=== PATIENT | female | born 1995 | race Asian ===

== ENCOUNTER 2017-04-29 20:04 | Emergency (ER) | payer BC ==
[~2017-04-29] VITALS: Ht 165.1 cm; Wt 70.5 kg
[2017-04-29 20:07] VITALS: BP 143/84
[2017-04-29] MEDS ORDERED: NIKKI1 TAB PO (20:10)
[2017-04-29 21:11] LABS: COLLECTION METHOD CLEAN CATCH
[2017-04-29 21:13] LABS: BASO % 0.4 % (0.0-2.0); EOS # 0.3 (0.0-0.7); EOS % 3.2 % (0-4.0); GRAN # 5.5 (1.4-6.5); GRAN % 60.4 % (42.2-75.2); HEMATOCRIT 39.8 % (35.0-45.0); HEMOGLOBIN 13.5 g/dl (12.0-15.0); LYMPH # 2.7 (1.2-3.4); LYMPH % 29.4 % (20.0-51.0); MEAN CELL VOLUME 91 fl (80.0-95.0); MEAN CORPUSCULAR HEMOGLOBIN 31 pg (26.0-32.0); MEAN CORPUSCULAR HGB CONC 34 g/dl (33.0-37.0); MEAN PLATELET VOLUME 10.3 fl (7.4-10.4); MONO # 0.6 (0.1-0.6); MONO % 6.2 % (1.7-9.3); PLATELET COUNT 342 K/mm3 (130-400); RED BLOOD COUNT 4.37 M/mm3 (4.10-5.30); REDCELL DISTRIBUTION WIDTH-CV 12.4 % (11.5-14.5)
[2017-04-29 21:17] LABS: MUCOUS Present /lpf; PH 6 (5-8); SQUAMOUS EPITHELIAL 0-2 /hpf; URINE APPEARANCE Clear; URINE BACTERIA None Seen /hpf; URINE BILIRUBIN Negative (NEGATIVE); URINE BLOOD Negative (NEGATIVE); URINE COLOR Yellow; URINE GLUCOSE Negative (NEGATIVE); URINE KETONE Negative (NEGATIVE); URINE LEUKOCYTE ESTERASE Negative (NEGATIVE); URINE NITRATE Negative (NEGATIVE); URINE PROTEIN(semi-quant) Negative (NEGATIVE); URINE RBC 0-2 /hpf; URINE UROBILINOGEN Negative (NEGATIVE)
[2017-04-29 21:20] LABS: ALBUMIN 4.4 gm/dL (3.5-5.0); BILIRUBIN,TOTAL 0.4 mg/dL (0.0-1.0); CALCIUM 9.2 mg/dL (8.4-10.2); CREATININE, serum 0.76 mg/dL (0.52-1.25); POTASSIUM 3.8 mmol/L (3.4-5.0); TOTAL PROTEIN 7.8 gm/dL (6.4-8.2)
[2017-04-29] MEDS ORDERED: VOLTAREN 75 DR75 MG PO (21:28)
[2017-04-29] MEDS ORDERED: FLEXERIL 1010 MG/TAB PO (21:28)
[2017-04-29 22:21] VITALS: PULSE 70
== END 2017-04-29 22:22 | disposition home or self-care (01) ==
LOC: COL.ER 20:04
PROVIDERS: Emergency Medicine
DX: S16.1XXA Strain of muscle, fascia and tendon at neck level, initial encounter (principal); S70.11XA Contusion of right thigh, initial encounter; F17.210 Nicotine dependence, cigarettes, uncomplicated; V48.6XXA Car passenger injured in noncollision transport accident in traffic accident, initial encounter

== ENCOUNTER → 2017-08-03 | Outpatient (CLI) | payer BC ==
[~2017-08-03] VITALS: Ht 167.6 cm; Wt 65.9 kg
[~2017-08-03] MED LIST: FLEXERIL 1010 MG/TAB PO; LORYNA 3 MG-0.01 TAB PO; NIKKI1 TAB PO; VOLTAREN 75 DR75 MG PO
[2017-08-03 14:06] VITALS: BP 116/77; PULSE 90; TEMP 98.8
[2017-08-03 17:36] LABS: TRICYCLIC ANTIDEPRESS URINE NEGATIVE
== END ==
LOC: COL.ER 13:55 → EDSTATUS 14:21 → LDRO 14:27
PROVIDERS: Family Medicine
DX: Z04.41 Encounter for examination and observation following alleged adult rape (principal)
CPT/HCPCS: J0696

== ENCOUNTER → 2017-08-03 | Outpatient (REF) | LOC: COL.ER 14:40 | DX: Z72.9 Problem related to lifestyle, unspecified (principal) ==

== ENCOUNTER 2021-11-26 12:20 | Observation (INO) | payer BC, OTHER ==
[~2021-11-26] VITALS: Ht 165.1 cm; Wt 61.7 kg
[2021-11-26] MEDS ORDERED: AMOXICILLIN 8751 TAB PO (12:33)
[2021-11-26] MEDS ORDERED: PREDNISONE20 MG PO (12:34)
[2021-11-26] MEDS ORDERED: PROVENTIL0.09 MG/A1 IH (12:34)
[2021-11-26 13:12] LABS: BASO # 0.1 K/mm3 (0.0-0.2); BASO % 0.4 % (0.0-2.0); GRAN # 15.3 K/mm3 (1.4-6.5); HEMATOCRIT 44.4 % (37.0-47.0); HEMOGLOBIN 14.8 g/dl (12.5-16.0); LYMPH # 2.4 K/mm3 (1.2-3.4); LYMPH % 12.9 % (20.0-51.0); MEAN CELL VOLUME 91 fl (80.0-100.0); MEAN CORPUSCULAR HEMOGLOBIN 31 pg (27-31); MEAN CORPUSCULAR HGB CONC 33 g/dl (33.0-37.0); MEAN PLATELET VOLUME 9.9 fl (7.4-10.4); MONO # 0.6 K/mm3 (0.1-0.6); MONO % 3.1 % (1.7-9.3); PLATELET COUNT 367 K/mm3 (130-400); RED BLOOD COUNT 4.86 M/mm3 (4.10-5.30); REDCELL DISTRIBUTION WIDTH-CV 12.4 % (11.5-14.5)
[2021-11-26 13:26] LABS: ALBUMIN 3.9 gm/dL (3.5-5.0); BILIRUBIN,TOTAL 0.5 mg/dL (0.2-1.2); C-REACTIVE PROTEIN 0.06 mg/dL (0.00-0.50); CALCIUM 9.3 mg/dL (8.4-10.2); CREATININE, serum 0.83 mg/dL (0.57-1.11); POTASSIUM 4.5 mmol/L (3.5-4.5); TOTAL PROTEIN 8.1 gm/dL (6.2-8.1)
[2021-11-26 14:10] LABS: COLLECTION METHOD CLEAN CATCH
[2021-11-26 14:24] LABS: URINE APPEARANCE Clear (CLEAR/HAZY); URINE BLOOD TRACE-INTACT (NEGATIVE); URINE COLOR Yellow (YELLOW); URINE GLUCOSE Negative (NEGATIVE); URINE KETONE Negative (NEGATIVE); URINE NITRATE Negative (NEGATIVE); URINE PROTEIN(semi-quant) Negative (NEGATIVE); URINE UROBILINOGEN 0.2 E.U/dL (0.2-1.0)
[2021-11-26 14:25] LABS: SQUAMOUS EPITHELIAL 0-2 /hpf (0-10); URINE BACTERIA None Seen /hpf (NONE SEEN); URINE RBC 0-2 /hpf (0-2)
[2021-11-26 16:07] LABS: CSF APPEARANCE HAZY; CSF COLOR COLORLESS
[2021-11-26 16:08] LABS: CSF RBC 6 /mm3 (0-0)
[2021-11-26 16:16] LABS: GLUCOSE,CSF 58 mg/dL (40-70); TOTAL PROTEIN,CSF 86 mg/dL (15-45)
[2021-11-26 16:21] LABS: CSF APPEARANCE CLEAR; CSF COLOR COLORLESS; CSF RBC 7 /mm3 (0-0)
[2021-11-26 16:38] LABS: CSF MONONUCLEAR 83 % (70-100); CSF POLYMORPHONUCLEAR 17 % (0-6)
[2021-11-26 16:42] LABS: CSF POLYMORPHONUCLEAR 3 % (0-6)
[2021-11-26 16:43] LABS: CSF MONONUCLEAR 97 % (70-100)
--- NOTE | 2021-11-26 18:31 | NUR ---
Vancomycin Initial Dosing Pharmacy Note Ordering provider: Davin Gustafson MD Indication/duration: meningitis Recommendation: Loading dose: 750mg given in ED Maintenance dose: 750 mg every 8 hours Trough goal: 12-17 ug/mL Trough draw ordered for 11/28/21 @ 12:30 Pharmacy will continue to follow.
--- NOTE | 2021-11-26 18:46 | NUR ---
PATIENT TRANSFERRED TO ROOM 319 FROM ER VIA BED ACCOMPANIED BY ER STAFF. PATIENT ALERT AND ORIENTED X4. ORIENTED TO ROOM, BED, CALL LIGHT, PHONE, TV, AND HOW TO CONTACT STAFF. FAMILY AT BEDSIDE. DROPLET PRECAUTIONS IN PLACE R/T MENINGITIS. INTAKE, COVID SCREENING, AND MED REC COMPLETED. DENIES ANY FURTHER QUESTIONS, CALL LIGHT WITHIN REACH.
[2021-11-26 19:12] VITALS: BP 103/54; PULSE 81; TEMP 99.2
--- NOTE | 2021-11-26 20:00 | NUR ---
Initial shift assessment done- just admitted from ER at shift change- Alert/oriented, neuros WNL, states has just a very slight BROWN to temples/base of head- denies need for pain meds, no eye sensitivity noted- Tele on- SR- Up to bathroom on own- informed to call for any assistance- On antibiotics and steroids. Contact/Droplet ISolation.
[2021-11-26 23:46] VITALS: BP 105/61; PULSE 93; TEMP 100.7
--- NOTE | 2021-11-26 23:52 | NUR ---
Temp 100.7, Michelle PINO informed of temp and slight BROWN- will order Tylenol
--- NOTE | 2021-11-26 23:52 | NUR ---
Temp 100.7, Michelle PINO informed of temp and slight BROWN- will order Tylenol
[2021-11-27 04:00] VITALS: BP 116/65; PULSE 87; TEMP 99.5
--- NOTE | 2021-11-27 06:00 | NUR ---
Temp down to 99.5, states headache is much better since the Tylenol was given earlier-
--- NOTE | 2021-11-27 06:00 | NUR ---
Temp down to 99.5, states headache is much better since the Tylenol was given earlier-
[2021-11-27 06:50] LABS: BASO # 0.1 K/mm3 (0.0-0.2); BASO % 0.5 % (0.0-2.0); GRAN % 76.2 % (42.2-75.2); LYMPH # 2.2 K/mm3 (1.2-3.4); LYMPH % 16.6 % (20.0-51.0); MEAN CELL VOLUME 93 fl (80.0-100.0); MEAN CORPUSCULAR HGB CONC 33 g/dl (33.0-37.0); MEAN PLATELET VOLUME 10.7 fl (7.4-10.4); MONO # 0.8 K/mm3 (0.1-0.6); MONO % 6.3 % (1.7-9.3); PLATELET COUNT 307 K/mm3 (130-400); RED BLOOD COUNT 3.94 M/mm3 (4.10-5.30); REDCELL DISTRIBUTION WIDTH-CV 12.2 % (11.5-14.5)
[2021-11-27 06:58] LABS: HEMATOCRIT 36.6 % (37.0-47.0); HEMOGLOBIN 12.1 g/dl (12.5-16.0); MEAN CORPUSCULAR HEMOGLOBIN 31 pg (27-31)
[2021-11-27 07:17] LABS: CALCIUM 8.2 mg/dL (8.4-10.2); CREATININE, serum 0.77 mg/dL (0.57-1.11); MAGNESIUM 1.9 mg/dL (1.6-2.6); PHOSPHOROUS 3.4 mg/dL (2.3-4.7); POTASSIUM 3.9 mmol/L (3.5-4.5)
[2021-11-27 07:47] VITALS: BP 96/60; PULSE 73; TEMP 98.2
--- NOTE | 2021-11-27 09:30 | NUR ---
OTILIO ALERT AND AWAKE. COMPLAINING OF SLIGHT HEAD ACHE AND SOME STIFFNESS TO THE BACK WHEN SHE TRIED TO AMBULATE WITH THERAPY. PATIENT CURRENTLY RESTING IN BED AT THIS TIME. CALL LIGHT WITH IN REACH.
[2021-11-27 11:51] VITALS: BP 107/60; PULSE 76; TEMP 98.2
--- NOTE | 2021-11-27 12:57 | NUR ---
stopped by and visited briefly. Patient wanted to rest.
--- NOTE | 2021-11-27 12:57 | NUR ---
stopped by and visited briefly. Patient wanted to rest.
[2021-11-27 15:38] VITALS: BP 106/62; PULSE 68; TEMP 97.9
[2021-11-27 20:25] VITALS: BP 113/74; PULSE 74; TEMP 98.7
--- NOTE | 2021-11-27 20:30 | NUR ---
Initial shift assessment done- states has mid back to flank pain, also slight headache-will give Tylenol- pt would like some Ibuprofen as this worked well for her in the past-- will call PA international logistics coordinator. Tele on. VSS. No other requests. very pleasant-alert/orientedx4.
--- NOTE | 2021-11-27 20:30 | NUR ---
Initial shift assessment done- states has mid back to flank pain, also slight headache-will give Tylenol- pt would like some Ibuprofen as this worked well for her in the past-- will call PA electronics engineering manager. Tele on. VSS. No other requests. very pleasant-alert/orientedx4.
[2021-11-27 23:58] VITALS: BP 119/77; PULSE 67; TEMP 98.1
[2021-11-28 04:49] VITALS: BP 117/76; PULSE 88; TEMP 98.1
--- NOTE | 2021-11-28 06:26 | NUR ---
Quiet night- afebrile all night, did get a couple hours of sleep between all the antibiotics
--- NOTE | 2021-11-28 06:26 | NUR ---
Quiet night- afebrile all night, did get a couple hours of sleep between all the antibiotics
[2021-11-28 06:52] LABS: BASO # 0.1 K/mm3 (0.0-0.2); BASO % 0.4 % (0.0-2.0); EOS % 0.1 % (0.0-4.0); GRAN # 10.6 K/mm3 (1.4-6.5); GRAN % 75.1 % (42.2-75.2); HEMOGLOBIN 12.4 g/dl (12.5-16.0); LYMPH # 2.8 K/mm3 (1.2-3.4); LYMPH % 19.6 % (20.0-51.0); MEAN CELL VOLUME 91 fl (80.0-100.0); MEAN CORPUSCULAR HEMOGLOBIN 31 pg (27-31); MEAN CORPUSCULAR HGB CONC 34 g/dl (33.0-37.0); MEAN PLATELET VOLUME 10.8 fl (7.4-10.4); MONO # 0.6 K/mm3 (0.1-0.6); MONO % 4.2 % (1.7-9.3); PLATELET COUNT 308 K/mm3 (130-400); RED BLOOD COUNT 4.01 M/mm3 (4.10-5.30); REDCELL DISTRIBUTION WIDTH-CV 12.2 % (11.5-14.5)
[2021-11-28 06:57] LABS: HEMATOCRIT 36.3 % (37.0-47.0)
[2021-11-28 07:07] LABS: ALBUMIN 3.2 gm/dL (3.5-5.0); CALCIUM 8.8 mg/dL (8.4-10.2); CREATININE, serum 0.73 mg/dL (0.57-1.11); POTASSIUM 4.1 mmol/L (3.5-4.5)
[2021-11-28 08:00] VITALS: BP 117/69; PULSE 60; TEMP 98.2
[2021-11-28 11:10] VITALS: BP 115/58; PULSE 75; TEMP 98.7
[2021-11-28 15:26] VITALS: BP 105/58; PULSE 93; TEMP 98.9
--- NOTE | 2021-11-28 16:44 | NUR ---
PT HAD A CALM DAY , VSS, ALERT AND ORIENT X 4,c/o pain at the neck and the back, pain meds given.all other due medicatios as prescribed.
--- NOTE | 2021-11-28 18:12 | NUR ---
Compressor Engineer met with patient for intake assessment/discharge planning: Patient presents alert and oriented, and gives consent for this Compressor Engineer to speak with her with her live-in boyfriend Malik at bedside. Patient states she is independent in her ADLs and IADLs, and lives in an apartment. She utilizes only an inhaler "very rarely" and denies use of any other DME. She states she does not have a primary care physician after she aged out of her cytology manager's services, and accepts a handout to consider PCP options, noting she does continue to be covered under her parents' healthcare coverage. She obtains her medications at [facility] without any difficulties, and she is interested in reviewing [facility]- paperwork as her boyfriend says he has completed his own. She verbalizes understanding of how to complete should she desire to do so while she remains hospitalized this stay, accepting a copy. Patient reports plan to return to home and denies any further discharge needs. *Discharge plan: to home*
--- NOTE | 2021-11-28 18:12 | NUR ---
Chicken Cleaner met with patient for intake assessment/discharge planning: Patient presents alert and oriented, and gives consent for this Chicken Cleaner to speak with her with her live-in boyfriend Malik at bedside. Patient states she is independent in her ADLs and IADLs, and lives in an apartment. She utilizes only an inhaler "very rarely" and denies use of any other DME. 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 She obtains her medications at [facility] without any difficulties, and she is interested in reviewing [facility]- paperwork as her boyfriend says he has completed his own. She verbalizes understanding of how to complete should she desire to do so while she remains hospitalized this stay, accepting a copy. Patient reports plan to return to home and denies any further discharge needs. *Discharge plan: to home*
--- NOTE | 2021-11-28 18:30 | NUR ---
PT IS SITTING UP IN RECLINER AT THIS ITME. DENIES PAIN, JUST SOME STIFFNESS IN HER NECK STILL. STATES SHE FEELS THOUGH THE CARE HERE HAS BEEN SUPERB. VERY APPRECIATIVE. DOES ASK QUESTIONS REGARDING DISCHARGE THAT HAS BEEN DISCUSSED FOR TOMORROW. NO OTHER CONCERNS AT THIS TIME.
[2021-11-28 20:18] VITALS: BP 118/76; PULSE 74; TEMP 98
--- NOTE | 2021-11-28 20:33 | NUR ---
Vancomycin Follow-up Pharmacy Note Current regimen: 750 mg q8h Vancomycin trough: 7.8 Adjustments: 1.25 g q8h
--- NOTE | 2021-11-28 20:33 | NUR ---
Vancomycin Follow-up Pharmacy Note Current regimen: 750 mg q8h Vancomycin trough: 7.8 Adjustments: 1.25 g q8h
--- NOTE | 2021-11-28 21:45 | NUR ---
THE PATIENT CALLED TO INFORM OF THE MEDICATION COMPLETE ON THE PUMP. SHE STATES THAT HER IV LOCATION HAS SOME SLIGHT DISCOMFORT. FLUSHED IV, NO ISSUES WITH PHELBITIS NOR INFLITRATION, DISCUSSED RUNNING VANC SLOWER TO HELP WITH THE DISCOMFORT. PATIENT STATES SHE AGREES. NO OTHER CONCERNS AT THIS TIME. AWAITING CLOTH FINISHING RANGE OPERATOR TO BRING NEW DOSAGE OF VANC.
--- NOTE | 2021-11-28 21:45 | NUR ---
THE PATIENT CALLED TO INFORM OF THE MEDICATION COMPLETE ON THE PUMP. SHE STATES THAT HER IV LOCATION HAS SOME SLIGHT DISCOMFORT. FLUSHED IV, NO ISSUES WITH PHELBITIS NOR INFLITRATION, DISCUSSED RUNNING VANC SLOWER TO HELP WITH THE DISCOMFORT. PATIENT STATES SHE AGREES. NO OTHER CONCERNS AT THIS TIME. AWAITING MARINE STEAM FITTER HELPER TO BRING NEW DOSAGE OF VANC.
--- NOTE | 2021-11-28 22:22 | NUR ---
STILL WAITING FOR VANCOCIN FROM INDUSTRIAL METHODS CONSULTANT WILL ADMINISTER UPON ARRIVAL.
--- NOTE | 2021-11-28 22:22 | NUR ---
STILL WAITING FOR VANCOCIN FROM SAS SQL DEVELOPER WILL ADMINISTER UPON ARRIVAL.
[2021-11-29 00:36] VITALS: BP 122/76; PULSE 65; TEMP 98.2
[2021-11-29 03:43] VITALS: BP 92/52; PULSE 63; TEMP 98.2
[2021-11-29 03:47] VITALS: BP 88/51
[2021-11-29 06:50] LABS: BASO # 0.1 K/mm3 (0.0-0.2); BASO % 0.8 % (0.0-2.0); EOS # 0.1 K/mm3 (0.0-0.7); EOS % 1.1 % (0.0-4.0); GRAN # 6.2 K/mm3 (1.4-6.5); GRAN % 50.3 % (42.2-75.2); HEMOGLOBIN 11.4 g/dl (12.5-16.0); LYMPH % 40.5 % (20.0-51.0); MEAN CELL VOLUME 95 fl (80.0-100.0); MEAN CORPUSCULAR HEMOGLOBIN 31 pg (27-31); MEAN CORPUSCULAR HGB CONC 32 g/dl (33.0-37.0); MEAN PLATELET VOLUME 10.7 fl (7.4-10.4); MONO # 0.7 K/mm3 (0.1-0.6); PLATELET COUNT 287 K/mm3 (130-400); REDCELL DISTRIBUTION WIDTH-CV 12.3 % (11.5-14.5)
[2021-11-29 06:52] VITALS: BP 104/57
[2021-11-29 07:00] LABS: HEMATOCRIT 35.2 % (37.0-47.0)
[2021-11-29 07:03] LABS: ALBUMIN 2.7 gm/dL (3.5-5.0); CALCIUM 8.2 mg/dL (8.4-10.2); CREATININE, serum 0.75 mg/dL (0.57-1.11); MAGNESIUM 1.9 mg/dL (1.6-2.6); PHOSPHOROUS 4.5 mg/dL (2.3-4.7); POTASSIUM 4.4 mmol/L (3.5-4.5)
--- NOTE | 2021-11-29 07:10 | NUR ---
awake resting in bed, bedside shift report received from TRUDY Hines
--- NOTE | 2021-11-29 07:10 | NUR ---
awake resting in bed, bedside shift report received from TRUDY Hines
[2021-11-29] MEDS ORDERED: ZOVIRAX400 MG PO (07:29)
[2021-11-29] MEDS ORDERED: LEVAQUIN 750MG750 M1 PO (07:29)
[2021-11-29 07:55] VITALS: BP 100/59; PULSE 65; TEMP 98.5
--- NOTE | 2021-11-29 08:20 | NUR ---
Dr Gustafson and care team in to see patient, will plan discharge later today
--- NOTE | 2021-11-29 08:20 | NUR ---
Dr Gustafson and care team in to see patient, will plan discharge later today
[2021-11-29] MEDS ORDERED: ADVIL200 MG PO (08:36)
--- NOTE | 2021-11-29 09:00 | NUR ---
has had breakfast and tolerated well, full assessment completed, see interventions for further info, telemetry discontinued and will plan discharge later, denies needs at this time, boyfriend at bedside
--- NOTE | 2021-11-29 10:32 | NUR ---
c/o neck pain and medicated with ibuprofen 400mg po, discharge instructions given to her and her boyfriend, verbalizes understanding
--- NOTE | 2021-11-29 10:32 | NUR ---
c/o neck pain and medicated with ibuprofen 400mg po, discharge instructions given to her and her boyfriend, verbalizes understanding
--- NOTE | 2021-11-29 10:36 | NUR ---
discharged per WC
--- NOTE | 2021-11-29 10:36 | NUR ---
discharged per WC
--- NOTE | 2021-11-29 10:40 | NUR ---
Automatic Wheel Line Operator followed up on primary care as patient will discharge home today. [facility] would prefer [facility]. SW contacted [facility] and set patient up with Dr. Robert Guerra on 12/02/21 at 1500. CARLOS provided appointment to unit aide to be included in discharge instructions. Discharge Plan: Home
--- NOTE | 2021-11-29 10:40 | NUR ---
Electrotyper followed up on primary care as patient will discharge home today. Patient would prefer [facility]. SW contacted [facility] and set patient up with Dr. Robert Guerra on 12/02/21 at 1500. CARLOS provided appointment to corrections unit supervisor to be included in discharge instructions. Discharge Plan: Home
== END 2021-11-29 10:36 | disposition home or self-care (01) ==
LOC: COL.ER 12:20 → MEDICAL 16:42
PROVIDERS: Physician Assistant; ADMIT Internal Medicine
DX: G03.0 Nonpyogenic meningitis (principal); D72.829 Elevated white blood cell count, unspecified; J45.909 Unspecified asthma, uncomplicated; F17.290 Nicotine dependence, other tobacco product, uncomplicated; Z79.899 Other long term (current) drug therapy
CPT/HCPCS: G0378; J0133; J0696; J1100; J1200; J1885; J2765; J3370; J3475; J7030; J7050